=== PATIENT | male | born 1980 | race Caucasian/White ===

== ENCOUNTER 2024-09-11 20:36 | Emergency (ER) | payer OTHER ==
[~2024-09-11] VITALS: Ht 180.3 cm; Wt 97.7 kg
[~2024-09-11 20:36] MED LIST: BACL-60 PO; HYDR-4274 PO; HYDR50TAB PO; IBUP80TA PO; KETAMINE CREAM TD; LUNE3TAB PO; MELO7.5S PO; MINI2CAP PO; MOBI4TAB PO; PERC10TA26 PO; PERC5TAB PO; PRAZ2CAP PO; PREG50CA87 PO; PROZ20CA11 PO; TOPA1TAB PO; WELLTAB PO; XANA0.5T PO; XANA1TAB2 PO; ZANT150T PO
[2024-09-11 20:50] VITALS: TEMP 98.8
[2024-09-11 21:09] LABS: BASO # 0.0 10^3/uL (0.0-0.2); BASO % 0.4 % (0.0-1.0); EOS # 0.1 10^3/uL (0.0-0.5); EOS % 0.4 % (0.0-3.0); LYMPH # 2.6 10^3/uL (1.5-5.0); LYMPH % 23.1 % (24.0-44.0); MONO # 1.1 10^3/uL (0.0-0.8); MONO % 9.5 % (2.0-8.0); NEUTROPHILS # 7.6 10^3/uL (1.5-8.5); NEUTROPHILS % 66.3 % (36.0-66.0); PLATELET COUNT, AUTOMATED 214 10^3/uL (150-450)
[2024-09-11] MEDS ORDERED: VERA40TA PO (21:20)
[2024-09-11] MEDS ORDERED: RAMI10CA64 PO (21:20)
[2024-09-11] MEDS ORDERED: PRAZ5CAP PO (21:20)
[2024-09-11] MEDS ORDERED: PANT40TA29 PO (21:20)
[2024-09-11 21:43] LABS: CALCIUM LEVEL 8.9 MG/DL (8.5-10.1); CARBON DIOXIDE LEVEL 24 MMOL/L (20-31); CHLORIDE LEVEL 105 MMOL/L (98-107); CK-MB VALUE MASS 5.8 NG/ML (<3.6); CPK CREATINE PHOSPHOKINASE 413 U/L (46-171); CREATININE FOR GFR 0.89 MG/DL (0.70-1.30); GLOMERULAR FILTRATION RATE > 90.0 (>60); MB/CK RELATIVE INDEX 1.40 (< OR =4); POTASSIUM SERUM 3.4 MMOL/L (3.5-5.1); SODIUM LEVEL 139 MMOL/L (136-145)
[2024-09-11 22:50] LABS: CK-MB VALUE MASS 6.3 NG/ML (<3.6)
[2024-09-11 22:55] LABS: CPK CREATINE PHOSPHOKINASE 389.0 U/L (46-171); MB/CK RELATIVE INDEX 1.61 (< OR =4)
[2024-09-11] MEDS: NS (Normal Saline) 0.9% 1,000 ML IV ONE (23:17)
[2024-09-11 23:35] LABS: ALT/SGPT 54 U/L (7.0-40); AST/SGOT 33 U/L (<34)
[2024-09-11 23:56] LABS: BARBITURATES URINE NEGATIVE (NEGATIVE); BENZODIAZEPINES URINE NEGATIVE (NEGATIVE); METHADONE URINE NEGATIVE (NEGATIVE); OPIATES URINE NEGATIVE (NEGATIVE)
[2024-09-11 23:57] LABS: CANNABINOIDS URINE NEGATIVE (NEGATIVE); PHENCYCLIDINE URINE NEGATIVE (NEGATIVE)
[2024-09-12 00:02] LABS: AMPHETAMINES LEVEL URINE POSITIVE (NEGATIVE); COCAINE METABOLITE URINE POSITIVE (NEGATIVE)
[2024-09-12 00:30] VITALS: BP 150/83; O2SAT 95
[2024-09-12] MEDS ORDERED: XANA1TAB2 PO (00:48)
== END 2024-09-12 01:21 | disposition home or self-care (01) ==
LOC: M ED 20:36
DX: R07.89 Other chest pain (principal); K21.9 Gastro-esophageal reflux disease without esophagitis; F41.9 Anxiety disorder, unspecified; F32.A Depression, unspecified; F43.10 Post-traumatic stress disorder, unspecified; F17.200 Nicotine dependence, unspecified, uncomplicated; Z88.8 Allergy status to other drugs, medicaments and biological substances; Z79.899 Other long term (current) drug therapy
CPT/HCPCS: 71045; 80048; 80076; 80307; 82550; 82553; 84484; 85025; 93005; 93041; 94760; 96361; 96374; 99284; J2060